=== PATIENT | female | born 2000 | race American Indian/Alaskan Native ===

== ENCOUNTER 2020-11-01 04:28 | Emergency (ER) | payer BC ==
[2020-11-01 04:59] VITALS: BP 113/75
--- NOTE | 2020-11-01 05:12 | Emergency Department Report ---
Blank Doc - Documentation Documentation: This is a 21-year-old female that presents with vaginal bleeding and pelvic pa in. Patient stated she had a ultrasound earlier today and was told that she may have a possible ectopic . 1- This initial assessment/diagnostic orders/clinical plan/ treatment(s) is/are subject to change based on pt's health status, clinical progression and re- assessment by fellow clinical providers in the ED. Further treatment and workup at subsequent clinical provers discretion. Patient/guardians urged not to elope from ED as their condition may be serious if not clinically assessed and managed. 2-labs 3-UA 4-State US OB
[2020-11-01 05:42] LABS: Basophils % (Auto) 0.5 % (0.0-1.8); Eosinophils # (Auto) 0.1 K/mm3 (0.0-0.4); Eosinophils % (Auto) 1.3 % (0.0-4.3); Hematocrit 35.7 % (30.3-42.9); Hemoglobin 12.1 gm/dl (10.1-14.3); Lymphocytes # (Auto) 1.6 K/mm3 (1.2-5.4); Lymphocytes % (Auto) 26.8 % (13.4-35.0); Mean Corpuscular HGB Conc 34 % (30-34); Mean Corpuscular Volume 99 fl (79-97); Monocytes # (Auto) 0.5 K/mm3 (0.0-0.8); Monocytes % (Auto) 8.8 % (0.0-7.3); Platelet Count 232 K/mm3 (140-440); Red Blood Count 3.62 M/mm3 (3.65-5.03); Red Cell Distribution Width 12.9 % (13.2-15.2)
[2020-11-01 06:37] LABS: Bilirubin,Urine NEG (Negative); Blood,Urine LG (Negative); Color,Urine Yellow (Yellow); Mucus,Urine 1+ /HPF
[2020-11-01 06:39] LABS: RBC,Urine > 182.0 /HPF (0.0-6.0)
[2020-11-01] MEDS ORDERED: ACETAMINOPHEN 325 MG TAB PO ONE (08:47)
--- NOTE | 2020-11-01 08:53 | Emergency Department Report ---
ED HPI - General Chief complaint: Vaginal Bleeding Stated complaint: ABD PAIN/BLEEDING Time Seen by Provider: 11/01/20 04:57 Source: patient Mode of arrival: Ambulatory Limitations: No Limitations - History of Present Illness Initial comments: 20-year-old female with a past medical history of previous ectopic presents to the hospital with recent positive test, cramping abdominal pain, vaginal bleeding, concern for ectopic . Patient had several positive home test on October 25. On October 29 she went to a clinic which performed ultrasound. Patient was told that her ultrasound showed a cyst vs ectopic . Patient declined to have blood work drawn due to the cost therefore HCG quant was unknown. Patient admits that she presented to the ER stating that she was "diagnosed with an ectopic " however, she has made this diagnosis or her own. Patient is LMP with September 16 and she took her test 6 days after her missed. This is her second . Patient has been having vaginal bleeding and cramping for the past 3 days and states that the blood volume is typical for her normal menses but the cramping is worse. - Related Data Allergies Allergy/AdvReac Type Severity Reaction Status Date / Time No Known Allergies Allergy Unverified 11/01/20 04:53 ED Review of Systems ROS: Stated complaint: ABD PAIN/BLEEDING Other details as noted in HPI Comment: All other systems reviewed and negative ED Past Medical Hx - Past Medical History Previous Medical History?: Yes Additional medical history: Ectopic - Social History Smoking Status: Current Every Day Smoker ED Physical Exam - General Limitations: No Limitations - Other Other exam information: General: No acute distress Head: Atraumatic Eyes: normal appearance ENT: Moist mucous membranes Neck: Normal appearance, no midline tenderness Chest: Clear to auscultation bilaterally CV: Regular rate and rhythm Abdomen: Soft, normal bowel sounds, suprapubic tenderness, nondistended, no rebound or guarding Back: Normal inspection Extremity: Normal inspection, full range of motion Neuro: Alert O x 3, no facial asymmetry, speech clear, no gross motor sensory deficit Psych: Appropriate behavior Skin: No rash ED Course Vital Signs 11/01/20 04:52 Temperature 98.4 F Pulse Rate 84 Respiratory 17 Rate Blood Pressure 113/75 O2 Sat by Pulse 100 Oximetry ED Medical Decision Making - Lab Data Result diagrams: 11/01/20 05:20 Lab Results 11/01/20 11/01/2011/01/21 Range/Units 05:20 05:20 Unknown WBC 6.1 (4.5-11.0) K/mm3 RBC 3.62 L (3.65-5.03) M/mm3 Hgb 12.1 (10.1-14.3) gm/dl Hct 35.7 (30.3-42.9) % MCV 99 H (79-97) fl MCH 33 H (28-32) pg MCHC 34 (30-34) % RDW 12.9 L (13.2-15.2) % Plt Count 232 (140-440) K/mm3 Lymph % (Auto) 26.8 (13.4-35.0) % [place] % (Auto) 8.8 H (0.0-7.3) % Eos % (Auto) 1.3 (0.0-4.3) % Baso % (Auto) 0.5 (0.0-1.8) % Lymph # (Auto) 1.6 (1.2-5.4) K/mm3 [place] # (Auto) 0.5 (0.0-0.8) K/mm3 Eos # (Auto) 0.1 (0.0-0.4) K/mm3 Baso # (Auto) 0.0 (0.0-0.1) K/mm3 Seg Neutrophils % 62.6 (40.0-70.0) % Seg Neutrophils # 3.9 (1.8-7.7) K/mm3 HCG, Quant 3.56 (0-4) mIU/mL Urine Color Yellow (Yellow) Urine Turbidity Slightly-cloudy (Clear) Urine pH 6.0 (5.0-7.0) Ur Specific [place] 1.031 H (1.003-1.030) Urine Protein 30 mg/dl (Negative) mg/dL Urine Glucose (UA) Neg (Negative) mg/dL Urine Ketones Neg (Negative) mg/dL Urine Blood Lg (Negative) Urine Nitrite Neg (Negative) Urine Bilirubin Neg (Negative) Urine Urobilinogen 4.0 (<2.0) mg/dL Ur Leukocyte Esterase Neg (Negative) Urine WBC (Auto) 2.0 (0.0-6.0) /HPF Urine RBC (Auto) > 182.0 (0.0-6.0) /HPF U Epithel Cells (Auto) 3.0 (0-13.0) /HPF Urine Mucus 1+ /HPF Blood Type 11/01/20 Range/Units Unknown WBC (4.5-11.0) K/mm3 RBC (3.65-5.03) M/mm3 Hgb (10.1-14.3) gm/dl Hct (30.3-42.9) % MCV (79-97) fl MCH (28-32) pg MCHC (30-34) % RDW (13.2-15.2) % Plt Count (140-440) K/mm3 Lymph % (Auto) (13.4-35.0) % [place] % (Auto) (0.0-7.3) % Eos % (Auto) (0.0-4.3) % Baso % (Auto) (0.0-1.8) % Lymph # (Auto) (1.2-5.4) K/mm3 [place] # (Auto) (0.0-0.8) K/mm3 Eos # (Auto) (0.0-0.4) K/mm3 Baso # (Auto) (0.0-0.1) K/mm3 Seg Neutrophils % (40.0-70.0) % Seg Neutrophils # (1.8-7.7) K/mm3 HCG, Quant (0-4) mIU/mL Urine Color (Yellow) Urine Turbidity (Clear) Urine pH (5.0-7.0) Ur Specific [place] (1.003-1.030) Urine Protein (Negative) mg/dL Urine Glucose (UA) (Negative) mg/dL Urine Ketones (Negative) mg/dL Urine Blood (Negative) Urine Nitrite (Negative) Urine Bilirubin (Negative) Urine Urobilinogen (<2.0) mg/dL Ur Leukocyte Esterase (Negative) Urine WBC (Auto) (0.0-6.0) /HPF Urine RBC (Auto) (0.0-6.0) /HPF U Epithel Cells (Auto) (0-13.0) /HPF Urine Mucus /HPF Blood Type A POSITIVE - Medical Decision Making 20-year-old female presents to the hospital complaining of vaginal bleeding, missed menstrual cycle, and positive test. Patient had outpatient ultrasound suggesting a cyst versus ectopic. Patient has an hCG of 3.56 here in the ED which is below the threshold. It is likely that patient is having a miscarriage given that her home test was positive a week ago and she now presents with a very low hCG and vaginal bleeding. Her quant is much too low to identify an ectopic at this time. Patient encouraged to follow- up in several days with [facility] for repeat quant to determine if level is increasing or decreasing. Patient's blood type is a positive therefore RhoGam not required. Tylenol provided and suggested for outpatient pain relief. Copy of labs provided for outpatient follow-up. Critical Care Time: No Critical care attestation.: If time is entered above; I have spent that time in minutes in the direct care of this critically ill patient, excluding procedure time. ED Disposition Clinical Impression: Threatened miscarriage in early Disposition: DC-01 TO HOME OR SELFCARE Is pt being admited?: No Does the pt Need Aspirin: No Condition: Stable Instructions: Miscarriage, [id number], Threatened Miscarriage, [id number] Additional Instructions: At this point in your it is unclear if you are having a threatened m iscarriage or a complete miscarriage. Your hCG quant is very low here in the ER and below the threshold of . However, you do report a positive home test 1 week ago so complete miscarriage is suspected. Follow-up will be important to determine if your hCG quant level is increasing signifying the baby is growing or decreasing signifying a continued miscarriage. Please return if symptoms worsen as indicated by your discharge. Follow-up with [facility] for further treatment and evaluation within the next 3 to 4 days. If your unable to have blood drawn by [facility] or a clinic you may return to the ER for reevaluation Take Tylenol as needed for pain Referrals: GEOFFREY MARTIN JR, MD [Staff Physician] - 3-5 Days (follow up with personnel security assistant in 3-4 days) Time of Disposition: 08:57
== END 2020-11-01 09:26 | disposition home or self-care (01) ==
LOC: ED 04:28
DX: O20.0 Threatened abortion (principal); F17.200 Nicotine dependence, unspecified, uncomplicated; Z3A.01 Less than 8 weeks gestation of pregnancy
CPT/HCPCS: 36415; 81001; 84702; 85025; 86900; 86901